=== PATIENT | female | born 1980 | race African-American/Black ===

== ENCOUNTER → 2019-07-11 | Outpatient (CLI) | payer OTHER ==
--- NOTE | 2019-07-11 15:14 | Diagnostic Imaging Report ---
INDICATION: Palpable lump in the outer right breast. COMPARISON: Correlation is made with diagnostic mammogram performed earlier the same day. EXAMINATION: Sonographic interrogation of the outer right breast in the area of palpable abnormality was performed. FINDINGS: There is a circumscribed, ovoid hypoechoic solid appearing mass at the 10:00 location of the right breast, 9 cm from the nipple, accounting for the patient's palpable abnormality. This measures 2.9 x 1.2 x 2.3 cm. No internal vascularity is seen. There is some mild posterior acoustic enhancement. 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 In addition, the 9:00 location of the right breast, 7 cm from the nipple, was evaluated. There is heterogeneous slightly hyperechoic breast tissue at this location as well as a probable intraparenchymal lymph node measuring 12 mm a 6 mm x 8 mm. This likely accounts for the density noted mammographically. No other abnormality is seen. IMPRESSION: 1. Circumscribed, ovoid solid mass at the area of palpable abnormality in the lateral right breast at approximately the 10:00 location, posterior depth. This has features of a fibroadenoma. After discussion with the patient, patient does report this increasing in size. Tissue sampling of the lesion is recommended for confirmation. This is amenable to ultrasound-guided core biopsy. 2. Parenchymal heterogeneity at the 9:30 location of the right breast, 7 cm from the nipple, with associated intraparenchymal lymph node. Follow-up right breast ultrasound in six months recommended to show continued stability. ACR BI-RADS Category 4: Suspicious abnormality. Result letter will be mailed to the patient. Note: At least 10% of breast cancer is not imaged by mammography. Dictated by: Dictated on workstation # [id number]
--- NOTE | 2019-07-11 16:22 | Diagnostic Imaging Report ---
INDICATION: Palpable lump in the right axilla. COMPARISON: No prior studies are available for comparison. 2-D and 3-D bilateral diagnostic mammography was performed with CAD. Both breasts are heterogeneously dense, limiting the sensitivity of mammography. BB marker was placed at the area of palpable abnormality in the right axilla. No underlying abnormality is seen. In addition, there is a circumscribed density in the outer aspect of the right breast approximately 7 cm from the nipple. This may represent a cyst. No other masses are seen. No suspicious microcalcifications are seen. IMPRESSION: BI-RADS 0 1. Circumscribed density outer right breast 7 cm from the nipple. Further evaluation with ultrasound is recommended. 2. No abnormality in the right axilla is seen to account for the palpable abnormality. Even so, directed sonographic interrogation of this region is recommended. Ultrasound will be performed today. Dictated by: Dictated on workstation # [id number]
== END ==
LOC: RAD 13:28
PROVIDERS: ATTEND Emergency Medicine
DX: N63.41 Unspecified lump in right breast, subareolar (principal)
CPT/HCPCS: 77066